=== PATIENT | male | born 1995 | race Caucasian/White ===

== ENCOUNTER 2021-01-07 08:27 | Emergency (ER) | payer OTHER, BC ==
[~2021-01-07] VITALS: Ht 182.9 cm; Wt 95.3 kg
[2021-01-07] MEDS ORDERED: CEPHALEXIN500 MG PO (09:11)
[2021-01-07 09:26] VITALS: BP 124/79
== END 2021-01-07 09:29 | disposition home or self-care (01) ==
LOC: M.ERS 08:27
DX: S61.411A Laceration without foreign body of right hand, initial encounter (principal); W22.8XXA Striking against or struck by other objects, initial encounter; Y93.89 Activity, other specified; Y92.89 Other specified places as the place of occurrence of the external cause; Y99.8 Other external cause status